=== PATIENT | female | born 1995 | race American Indian/Alaskan Native ===

== ENCOUNTER 2017-09-14 03:11 | Emergency (ER) | payer OTHER ==
[2017-09-14 03:27] VITALS: RESP 18; TEMP 98.1
--- NOTE | 2017-09-14 03:37 | ED PDOC ---
Arrival/HPI - General Chief Complaint: Female Genitourinary Time Seen by Provider: 09/14/17 03:30 Historian: Patient - History of Present Illness Narrative History of Present Illness (Text): 09/14/17 03:34 Natalie Kaiser is a 22 year old female, , currently 24 weeks , who presents to the Emergency department status post fall 45 minutes prior to arrival. Patient states she tripped on an extension cord while at work tonight and landed on her right side/abdomen. Patient denies any abdominal pain, back pain, vaginal discharge/bleeding, or any other complaints but was concerned and came in for further evaluation. Time/Duration: Other (tonight) Symptom Onset: Sudden Symptom Course: Unchanged Activities at Onset: Light Context: Work, Tripped Past Medical History - Provider Review Nursing Documentation Reviewed: Yes - Psychiatric Hx Substance Use: No Family/Social History - Physician Review Nursing Documentation Reviewed: Yes Family/Social History: Unknown Family HX Smoking Status: no Hx Alcohol Use: No Hx Substance Use: No Allergies/Home Meds Allergies/Adverse Reactions: Allergies No Known Allergies Allergy (Verified 09/14/17 03:28) Home Medications: Home Meds Medication Instructions Recorded Confirmed No Known Home Med 09/14/17 09/14/17 Review of Systems - Physician Review All systems were reviewed & negative as marked: Yes - Review of Systems Constitutional: Normal. absent: Fevers Eyes: Normal ENT: Normal Respiratory: Normal. absent: SOB, Cough Cardiovascular: Normal. absent: Chest Pain Gastrointestinal: Normal. absent: Abdominal Pain, Diarrhea, Nausea, Vomiting Genitourinary Female: Normal. absent: Dysuria, Frequency, Hematuria, Urine Output Changes, Vaginal Bleeding, Vaginal Discharge Musculoskeletal: Normal. absent: Back Pain, Neck Pain Skin: Normal. absent: Rash Neurological: Normal. absent: Headache, Dizziness Endocrine: Normal Hemo/Lymphatic: Normal Psychiatric: Normal Physical Exam Vital Signs Reviewed: Yes Vital Signs Temp Pulse Resp BP Pulse Ox 09/14/17 03:18 98.1 F 88 18 124/87 99 Temperature: Afebrile Blood Pressure: Normal Pulse: Regular Respiratory Rate: Normal Appearance: Positive for: Well-Appearing, Non-Toxic, Comfortable Pain Distress: None Mental Status: Positive for: Alert and Oriented X 3 - Systems Exam Head: Present: Atraumatic, Normocephalic Pupils: Present: PERRL Extroacular Muscles: Present: EOMI Conjunctiva: Present: Normal Mouth: Present: Moist Mucous Membranes Neck: Present: Normal Range of Motion Respiratory/Chest: Present: Clear to Auscultation, Good Air Exchange. No: Respiratory Distress, Accessory Muscle Use Cardiovascular: Present: Regular Rate and Rhythm, Normal S1, S2. No: Murmurs Abdomen: Present: Distention (Distention consistent with gestational age), Normal Bowel Sounds. No: Tenderness, Peritoneal Signs Back: Present: Normal Inspection Upper Extremity: Present: Normal Inspection. No: Cyanosis, Edema Lower Extremity: Present: Normal Inspection. No: Edema Neurological: Present: GCS=15, CN II-XII Intact, Speech Normal Skin: Present: Warm, Dry, Normal Color. No: Rashes Psychiatric: Present: Alert, Oriented x 3, Normal Insight, Normal Concentration Medical Decision Making ED Course and Treatment: 09/14/17 03:34 Impression: 22 year old female presents s/p fall, requesting US. Plan: -- US Age -- Reassess and disposition Progress Notes: 09/14/17 05:35 Reviewed sono, US Age shows: Fetus: The average ultrasound gestational age was measured at 24 weeks and 5 days. The gestational age calculated from biparietal diameter and head circumference is approximately 25 weeks. The gestational age calculated from abdominal circumference and femur length is 24 weeks 4 days. Position: There is a silveira fetus in the vertex presentation. Heart rate: The heart rate was measured at 144 beats per minute. Placenta: The placenta is anterior in location and grade 2-3. No placenta previa. Amniotic fluid: There's an adequate amount of amniotic fluid. Cervix: The cervix is closed and measures 5.5 cm. Adnexa: The maternal ovaries are not seen. IMPRESSION: 1. No acute findings. No retroplacental hematoma. 2.The placenta is anterior in location and grade 2-3. No placenta previa.Correlation with OB clinical evaluation and further workup or followup as recommended by patient's clinical data. 09/14/17 05:40 On re-evaluation, patient is in no acute distress. Patient is stable for discharge. Patient was instructed to follow up with OBGYN/physician/clinic or return if new concerning symptoms arise. - RAD Interpretation Radiology Orders: 09/14/17 03:50 AGE [US] Stat Rehabilitation Consultant: Radiologist - Scribe Statement The provider has reviewed the documentation as recorded by the Michaelibdeisy Williamson Provider Scribe Attestation: All medical record entries made by the Scribe were at my direction and personally dictated by me. I have reviewed the chart and agree that the record accurately reflects my personal performance of the history, physical exam, medical decision making, and the department course for this patient. I have also personally directed, reviewed, and agree with the discharge instructions and disposition. Disposition/Present on Arrival - Present on Arrival Any Indicators Present on Arrival: No History of DVT/PE: No History of Uncontrolled Diabetes: No Urinary Catheter: No History of Decub. Ulcer: No History Surgical Site Infection Following: None - Disposition Have Diagnosis and Disposition been Completed?: Yes Diagnosis: , Normal exam Disposition: HOME/ ROUTINE Disposition Time: 05:38 Patient Plan: Discharge Condition: GOOD Discharge Instructions (ExitCare): (ED) Additional Instructions: Follow up with your doctor as needed Forms: [employer] [facility] [facility] ([place])
--- NOTE | 2017-09-14 05:17 | US ---
EXAM: US Uterus, Limited CLINICAL HISTORY: 22 years old, female; Injury or trauma; Fall; Work related; Initial encounter; Abrasion; Lower; Injury date: 09/14/2017; Injury details: Pt tripped over electical wire; TECHNIQUE: Real-time ultrasound of the maternal uterus (limited) with image documentation. COMPARISON: No relevant prior studies available. FINDINGS: Fetus: The average ultrasound gestational age was measured at 24 weeks and 5 days. The gestational age calculated from biparietal diameter and head circumference is approximately 25 weeks. The gestational age calculated from abdominal circumference and femur length is 24 weeks 4 days. Position: There is a silveira fetus in the vertex presentation. Heart rate: The heart rate was measured at 144 beats per minute. Placenta: The placenta is anterior in location and grade 2-3. No placenta previa. Amniotic fluid: There's an adequate amount of amniotic fluid. Cervix: The cervix is closed and measures 5.5 cm. Adnexa: The maternal ovaries are not seen. IMPRESSION: 1. No acute findings. No retroplacental hematoma. 2.The placenta is anterior in location and grade 2-3. No placenta previa.Correlation with OB clinical evaluation and further workup or followup as recommended by patient's clinical data.
[2017-09-14 05:46] VITALS: BP 118/71; PULSE 84; O2SAT 100
== END 2017-09-14 05:47 | disposition home or self-care (01) ==
LOC: ED 03:11
DX: O26.892 Other specified pregnancy related conditions, second trimester (principal); Z3A.24 24 weeks gestation of pregnancy